=== PATIENT | female | born 1965 | race Caucasian/White ===

== ENCOUNTER 2016-09-05 13:23 | Day surgery (SDC) | payer OTHER ==
[~2016-09-05] VITALS: Ht 157.5 cm; Wt 59.4 kg
[2016-09-05 14:34] VITALS: Ht 157.5 cm; Wt 59.4 kg
[2016-09-05] MEDS ORDERED: CHOL400T10 PO (14:41)
[2016-09-05] MEDS ORDERED: OMEG300C3 PO (14:41)
[2016-09-05] MEDS ORDERED: VITA1CAP PO (14:41)
[2016-09-05] MEDS ORDERED: VITA200C36 PO (14:41)
[2016-09-05] MEDS ORDERED: CALC600T5 PO (14:41)
[2016-09-05 16:45] VITALS: BP 127/72; PULSE 58; RESP 17
[2016-09-05 17:40] VITALS: BP 97/56; RESP 20
[2016-09-05] MEDS ORDERED: MIDAZOLAM 1 MG/ML 2 ML INJ ONE ×4 (17:47→17:48)
[2016-09-05] MEDS ORDERED: FENTAnyl 50 MCG/ML VIAL ONE (17:47)
--- NOTE | 2016-09-06 05:59 | GILP ---
DATE OF PROCEDURE: PROCEDURE: Colonoscopy with polyp ablation. BRIEF HISTORY AND INDICATIONS: The patient is being evaluated for colorectal cancer screening. PREMEDICATION: Versed 7 mg, fentanyl 75 mcg administered IV push by Dr. Giraldo. INSTRUMENT USED: Olympus colonoscope. PREPARATION: Adequate. TECHNIQUE: After informed consent, with the patient/relatives understanding the procedure, its indic ations potential risks and complications, including but not limited to: allergic reaction, bleeding, perforation, infection, missed lesions and after all pertinent questions were answered to the patie nt's satisfaction, the patient/relatives signed the witnessed informed consent. Following this, premedication was administered slowly IV push by under careful cardiovascular and re spiratory monitoring with pulse oximetry, automatic blood pressure and athletic equipment custodian. Once the sedativ e effect was achieved, the patient was placed in the left lateral decubitus position, digital rectal examination was performed. The colonoscope was then introduced and advanced under visual control th roughout all segments of the colon including: the rectum, sigmoid, descending colon, splenic flexure , transverse colon, hepatic flexure, ascending colon and finally reaching the cecum which was clearl y identified by transillumination, finger indentation and the ileocecal valve. FINDINGS: Careful examination of the mucosa of the lower gastrointestinal tract both on insertion a s well as withdrawal of the instrument disclosed the following findings: Rectal Examination: No evidence of perirectal disease, no masses. Colonic Mucosa: There is a 3 mm polyp in the distal sigmoid colon which was ablated with biopsy for ceps. The remainder of colonic mucosa unremarkable. The ileocecal valve was clearly identified and appear s unremarkable. The instrument was withdrawn reexamining the mucosa in detail. No additional abnor malities are noted with exception of moderate sized internal hemorrhoids. The patient tolerated the procedure well and was transferred out of the [facility] awake and in good condition to continue recovery under observation. IMPRESSION: 1. A 3 mm polyp in the distal sigmoid ablated. 2. Moderate size internal hemorrhoids. PLAN: Pathology will be reviewed as soon as available. Pending that, surveillance colonoscopy in 5 to 10 years is recommended. Dictated By: DEBORA GIRALDO MS/LORETA Conf#: [id number] DID#: [id number]
== END 2016-09-05 18:41 | disposition home or self-care (01) ==
LOC: GIL 13:23
PROVIDERS: ATTEND Internal Medicine Gastroenterology
DX: Z12.11 Encounter for screening for malignant neoplasm of colon (principal); K63.5 Polyp of colon; K64.8 Other hemorrhoids
CPT/HCPCS: 45380; 88305; J2250; J3010; Z7610